=== PATIENT | female | born 1990 ===

== ENCOUNTER → 2023-12-04 | Outpatient (REF) ==
[2023-12-06 14:13] LABS: HERPES ZOSTER, VARICELLA IgG < 135.00 index; RUBEOLA IgG ANTIBODY < 13.50 AU/mL (>16.49)
== END ==
LOC: M LAB 14:50
PROVIDERS: ATTEND Family Medicine
DX: Z01.84 Encounter for antibody response examination (principal)

== ENCOUNTER → 2023-12-10 | Outpatient (REF) | LOC: M EMP 08:34 | PROVIDERS: ATTEND Family Medicine | DX: Z11.52 Encounter for screening for COVID-19 (principal) ==